=== PATIENT | male | born 1960 | race Caucasian/White ===

== ENCOUNTER 2019-07-23 11:11 | Inpatient (IN) | payer OTHER ==
[~2019-07-23] VITALS: Ht 182.9 cm; Wt 88.6 kg
[2019-07-23 11:53] LABS: ALANINE AMINOTRANSFERASE 206 U/L (12-78); ALBUMIN 3.4 g/dL (3.4-5.0); ANION GAP 10 mmol/L (5-15); CHLORIDE 96 mmol/L (98-107); CREATININE 0.93 mg/dL (0.7-1.3)
[2019-07-23 12:07] LABS: ALKALINE PHOSPHATASE 988 U/L (45-117); BILIRUBIN,TOTAL 8.7 mg/dL (0.2-1.0); TOTAL PROTEIN 7.5 g/dL (6.4-8.2)
[2019-07-23 12:11] LABS: MEAN CORPUSCULAR HEMOGLOBIN 30.9 pg (27.5-34.5); MEAN CORPUSCULAR HGB CONC 34.1 g/dL (33.2-36.2); MEAN CORPUSCULAR VOLUME 90.6 fL (81-97); MEAN PLATELET VOLUME 7.7 fL (7.4-10.4); PLATELET COUNT 225 x10^3/uL (130-400); RED BLOOD COUNT 5.26 x10^6/uL (4.38-5.82); RED CELL DISTRIBUTION WIDTH 15.7 % (9.4-14.8)
[2019-07-23 12:30] LABS: BASOPHILS # (AUTO) 0.02 x10^3/uL (0-0.1); BASOPHILS % (AUTO) 0 % (0-1); EOSINOPHILS # (AUTO) 0.27 x10^3/uL (0-0.4); EOSINOPHILS % (AUTO) 3 % (1-7); LYMPHOCYTES # (AUTO) 1.55 x10^3/uL (1-3.4); LYMPHOCYTES % (AUTO) 15 % (22-44); MD SCAN; MONOCYTES # (AUTO) 0.96 x10^3/uL (0.2-0.8); MONOCYTES % (AUTO) 9 % (2-9); NEUTROPHILS # (AUTO) 7.49 x10^3/uL (1.8-6.8); NEUTROPHILS % (AUTO) 73 % (42-75)
--- NOTE | 2019-07-23 14:28 | NUR ---
TO ROOM FROM LOBBY AT THIS TIME
[2019-07-23 14:58] LABS: MICROSCOPIC NOT IND
[2019-07-23 15:01] LABS: CULTURE INDICATED? NO
--- NOTE | 2019-07-23 15:31 | NUR ---
PT PRESENTS TO ED WITH C/O LEFT UPPER ABD PAIN AND DIZZINESS X 1.5 MONTHS. PT DENIES PAIN AT THIS TIME. NEURO INTACT, PT A&OX4, RESPS EVEN AND UNLABORED. EKG COMPLETED IN TRIAGE. ALL MONITORS IN PLACE. CALL LIGHT IN REACH, AWAITING CT SCAN. REPORT GIVEN TO RADHA MIKE.
--- NOTE | 2019-07-23 15:45 | NUR ---
RECEIVED REPORT FROM RADHA HILARIO. PT RESTING ON GURNEY. SHANNANN. VSS. PIV INITIATED FOR CT. ORTHOSTATICS COMPLETED.
--- NOTE | 2019-07-23 15:47 | NUR ---
CT DOING CODE NEURO BEFORE THIS PATIENT
--- NOTE | 2019-07-23 16:25 | NUR ---
PT RESTING ON GURNEY. NADN. GONZÁLES.
[2019-07-23] MEDS ORDERED: OMNIPAQUE 350 MG/ML, 100ML BOTTLE ONE (16:47)
[2019-07-23] MEDS ORDERED: SODIUM CHLORIDE FLUSH 10ML SYR IVF PRN (17:30)
--- NOTE | 2019-07-23 17:50 | NUR ---
PT PROVIDED W/ DINNER TRAY. PT RESTING ON ALEXANDER.
--- NOTE | 2019-07-23 18:03 | NUR ---
PT RESTING ON GURNEY. NADN. GONZÁLES.
--- NOTE | 2019-07-23 18:25 | NUR ---
REPORT GIVEN TO VICKI WHITE RN. ALL QUESTIONS ANSWERED. AWAITING PT TRANSPORT.
[2019-07-23] MEDS ORDERED: BISACODYL 10 MG SUPP PR PRN (19:30)
[2019-07-23] MEDS ORDERED: ENALAPRILAT 1.25 MG/ML, 2ML IVPush PRN (19:30)
[2019-07-23] MEDS ORDERED: LORazepam 2 MG/ML, 1ML IVPush PRN (19:30)
[2019-07-23] MEDS ORDERED: LIDODERM 5% PATCH TD PRN (19:30)
[2019-07-23] MEDS ORDERED: ENOXAPARIN 80 MG/0.8 ML SQ SCH (19:30)
[2019-07-23] MEDS ORDERED: HYDROmorphone 1 MG/ML, 1ML INJ ONE (19:53)
[2019-07-23] MEDS: HYDROmorphone 2 MG/ML, 1ML IVPush PRN (19:56)
[2019-07-23 20:02] VITALS: BP 128/78
[2019-07-24] MEDS ORDERED: HYDROmorphone 1 MG/ML, 1ML INJ ONE ×2 (00:06→06:11)
[2019-07-24] MEDS: SODIUM CHLORIDE 0.9% 1,000 ML IV SCH ×3 (00:10→15:26)
[2019-07-24] MEDS: HYDROmorphone 2 MG/ML, 1ML IVPush PRN ×5 (00:11→18:34)
[2019-07-24] MEDS: NICOTINE 21 MG/24 HR PATCH.TD24 TD SCH ×2 (00:11→21:42)
[2019-07-24] MEDS ORDERED: HEPARIN 5,000 UNITS/ML, 1ML IV ONE (01:00)
[2019-07-24 01:36] VITALS: BP 92/57
[2019-07-24 01:49] LABS: MEAN CORPUSCULAR HEMOGLOBIN 30.6 pg (27.5-34.5); MEAN CORPUSCULAR HGB CONC 34.1 g/dL (33.2-36.2); MEAN CORPUSCULAR VOLUME 89.8 fL (81-97); MEAN PLATELET VOLUME 8.1 fL (7.4-10.4); PLATELET COUNT 202 x10^3/uL (130-400); RED BLOOD COUNT 4.85 x10^6/uL (4.38-5.82); RED CELL DISTRIBUTION WIDTH 15.5 % (9.4-14.8)
[2019-07-24 02:05] LABS: MD YES
[2019-07-24 02:09] LABS: BANDS%(MANUAL) 2 % (0-7); BASOS% (MANUAL) 1 % (0-1); EOS% (MANUAL) 2 % (1-7); LYMPH#(MANUAL) 1.67 x10^3/uL (1-3.4); LYMPHS% (MANUAL) 17 % (22-44); MONOS#(MANUAL) 1.08 x10^3/uL (0.3-2.7); MONOS% (MANUAL) 11 % (2-9); SEG#(MANUAL) 6.57 x10^3/uL (1.8-6.8); SEGS% (MANUAL) 67 % (42-75)
[2019-07-24 02:10] LABS: <PLATELET ESTIMATE> ADEQUATE; <PLT MORPHOLOGY> NORMAL PLT MORPH; ANISOCYTOSIS 1+
[2019-07-24] MEDS: HEPARIN 25,000 UNITS/250ML PMX 250 ML IV PRN (02:15)
[2019-07-24 02:29] LABS: ALANINE AMINOTRANSFERASE 175 U/L (12-78); ALBUMIN 2.9 g/dL (3.4-5.0); ANION GAP 8 mmol/L (5-15); CALCIUM 9.5 mg/dL (8.5-10.1); CHLORIDE 101 mmol/L (98-107); CREATININE 1.06 mg/dL (0.7-1.3)
[2019-07-24 02:31] LABS: ALKALINE PHOSPHATASE 866 U/L (45-117); BILIRUBIN,TOTAL 7.8 mg/dL (0.2-1.0); TOTAL PROTEIN 6.6 g/dL (6.4-8.2)
[2019-07-24] MEDS: ONDANSETRON 2MG/ML, 2ML IVPush PRN ×2 (04:56→12:28)
[2019-07-24 07:43] VITALS: BP 99/62
[2019-07-24 07:43] LABS: INTERNATIONAL NORMALIZED RATIO 0.97 (0.93-1.1); PROTHROMBIN TIME 10.3 Seconds (9.6-11.5)
[2019-07-24] MEDS ORDERED: FLUMAZENIL 0.1 MG/1 ML, 5ML ONE (10:19)
[2019-07-24] MEDS ORDERED: MIDAZOLAM 1 MG/ML, 5ML ONE (10:19)
[2019-07-24] MEDS ORDERED: FENTANYL PF 100 MCG/2ML ONE (10:19)
[2019-07-24] MEDS ORDERED: NALOXONE 1 MG/ML, 2ML ONE (10:20)
[2019-07-24 11:03] VITALS: BP 107/72
[2019-07-24] MEDS ORDERED: PROMETHAZINE 25 MG/ML, 1ML IM PRN (12:30)
[2019-07-24 12:36] VITALS: BP 112/75
[2019-07-24 18:18] VITALS: BP 133/79
[2019-07-24] MEDS: HEPARIN 5,000 UNITS/ML, 1ML IV PRN (19:41)
[2019-07-25] MEDS: HYDROmorphone 2 MG/ML, 1ML IVPush PRN ×7 (00:25→21:54)
[2019-07-25 00:35] VITALS: BP 113/69
[2019-07-25 01:55] LABS: ALANINE AMINOTRANSFERASE 158 U/L (12-78); ALBUMIN 2.6 g/dL (3.4-5.0); ANION GAP 8 mmol/L (5-15); CHLORIDE 106 mmol/L (98-107); CREATININE 0.63 mg/dL (0.7-1.3)
[2019-07-25 01:57] LABS: ALKALINE PHOSPHATASE 810 U/L (45-117); BILIRUBIN,TOTAL 7.4 mg/dL (0.2-1.0); TOTAL PROTEIN 5.9 g/dL (6.4-8.2)
[2019-07-25 02:11] LABS: MD YES; MEAN CORPUSCULAR HEMOGLOBIN 30.7 pg (27.5-34.5); MEAN CORPUSCULAR HGB CONC 33.7 g/dL (33.2-36.2); MEAN CORPUSCULAR VOLUME 91.1 fL (81-97); MEAN PLATELET VOLUME 7.9 fL (7.4-10.4); PLATELET COUNT 190 x10^3/uL (130-400); RED BLOOD COUNT 4.52 x10^6/uL (4.38-5.82); RED CELL DISTRIBUTION WIDTH 15.8 % (9.4-14.8)
[2019-07-25 02:12] LABS: BASOS#(MANUAL) 0.09 x10^3/uL (0-0.1); BASOS% (MANUAL) 1 % (0-1); EOS#(MANUAL) 0.34 x10^3/uL (0.0-0.4); EOS% (MANUAL) 4 % (1-7); LYMPH#(MANUAL) 1.28 x10^3/uL (1-3.4); LYMPHS% (MANUAL) 15 % (22-44); MONOS#(MANUAL) 0.77 x10^3/uL (0.3-2.7); MONOS% (MANUAL) 9 % (2-9); REACTIVE LYMPHS # (MANUAL) 0.17 x10^3/uL (0-0); REACTIVE LYMPHS % (MANUAL) 2 % (0-0); SEG#(MANUAL) 5.87 x10^3/uL (1.8-6.8); SEGS% (MANUAL) 69 % (42-75)
[2019-07-25 02:13] LABS: ANISOCYTOSIS 1+; TARGET CELLS 1+
[2019-07-25 02:14] LABS: <PLATELET ESTIMATE> ADEQUATE
[2019-07-25] MEDS: HEPARIN 5,000 UNITS/ML, 1ML IV PRN ×3 (02:29→23:06)
[2019-07-25] MEDS: HEPARIN 25,000 UNITS/250ML PMX 250 ML IV PRN ×2 (04:06→23:06)
[2019-07-25 07:22] VITALS: BP 121/76
[2019-07-25] MEDS: SODIUM CHLORIDE 0.9% 1,000 ML IV SCH ×4 (07:51→23:10)
[2019-07-25 13:22] VITALS: BP 131/79
[2019-07-25 19:28] VITALS: BP 148/79
[2019-07-25] MEDS: NICOTINE 21 MG/24 HR PATCH.TD24 TD SCH (20:02)
[2019-07-25] MEDS: ONDANSETRON 2MG/ML, 2ML IVPush PRN (21:58)
[2019-07-26 00:47] VITALS: BP 131/73
[2019-07-26] MEDS: HYDROmorphone 2 MG/ML, 1ML IVPush PRN ×6 (00:59→21:07)
[2019-07-26 07:08] VITALS: BP 119/66
[2019-07-26] MEDS: NICOTINE 21 MG/24 HR PATCH.TD24 TD SCH (09:27)
[2019-07-26] MEDS: SODIUM CHLORIDE 0.9% 1,000 ML IV SCH (09:28)
[2019-07-26] MEDS ORDERED: SENNOSIDES 8.8 MG/5 ML ORAL SOL PO SCH (12:00)
[2019-07-26] MEDS: SENNA/DOCUSATE TABLET PO SCH (12:57)
[2019-07-26 13:25] VITALS: BP 95/57
[2019-07-26 19:05] VITALS: BP 143/77
[2019-07-26] MEDS ORDERED: HYDROmorphone 1 MG/ML, 1ML INJ ONE (21:02)
[2019-07-27 00:10] VITALS: BP 139/87
[2019-07-27] MEDS ORDERED: HYDROmorphone 1 MG/ML, 1ML INJ ONE (00:12)
[2019-07-27] MEDS: HYDROmorphone 2 MG/ML, 1ML IVPush PRN ×6 (00:18→20:10)
[2019-07-27] MEDS: OXYcodone IR 5MG TABLET PO PRN ×2 (02:06→17:20)
[2019-07-27] MEDS: HEPARIN 25,000 UNITS/250ML PMX 250 ML IV PRN ×2 (06:30→21:34)
[2019-07-27] MEDS: NICOTINE 21 MG/24 HR PATCH.TD24 TD SCH (07:39)
[2019-07-27 07:40] VITALS: BP 120/76
[2019-07-27] MEDS: SENNA/DOCUSATE TABLET PO SCH (07:40)
[2019-07-27] MEDS: POLYETHYLENE GLYCOL 17 GM PACKET NG PRN (10:36)
[2019-07-27 12:42] VITALS: BP 127/78
[2019-07-27] MEDS ORDERED: MAGNESIUM CITRATE 300ML ORAL SOL PO ONE (15:00)
[2019-07-27] MEDS: ONDANSETRON 2MG/ML, 2ML IVPush PRN (16:44)
[2019-07-27 19:29] VITALS: BP 109/76
[2019-07-28 00:25] VITALS: BP 112/72
[2019-07-28] MEDS: HYDROmorphone 2 MG/ML, 1ML IVPush PRN ×5 (02:41→20:01)
[2019-07-28 04:53] LABS: ALANINE AMINOTRANSFERASE 110 U/L (12-78); ALBUMIN 2.2 g/dL (3.4-5.0); ANION GAP 8 mmol/L (5-15); CALCIUM 8.7 mg/dL (8.5-10.1); CHLORIDE 99 mmol/L (98-107)
[2019-07-28 04:55] LABS: ALKALINE PHOSPHATASE 678 U/L (45-117); BILIRUBIN,TOTAL 8.4 mg/dL (0.2-1.0); TOTAL PROTEIN 5.4 g/dL (6.4-8.2)
[2019-07-28] MEDS: HEPARIN 5,000 UNITS/ML, 1ML IV PRN ×2 (05:13→18:55)
[2019-07-28 07:07] VITALS: BP 107/60
[2019-07-28] MEDS: OXYcodone IR 5MG TABLET PO PRN ×3 (09:31→22:35)
[2019-07-28] MEDS: POLYETHYLENE GLYCOL 17 GM PACKET NG PRN (09:31)
[2019-07-28] MEDS: NICOTINE 21 MG/24 HR PATCH.TD24 TD SCH (09:32)
[2019-07-28] MEDS: SENNA/DOCUSATE TABLET PO SCH (09:33)
[2019-07-28] MEDS: HEPARIN 25,000 UNITS/250ML PMX 250 ML IV PRN (12:44)
[2019-07-28 14:33] VITALS: BP 108/72
[2019-07-28 19:43] VITALS: BP 125/81
[2019-07-29 01:28] VITALS: BP 114/71
[2019-07-29] MEDS: HEPARIN 25,000 UNITS/250ML PMX 250 ML IV PRN ×2 (03:36→16:09)
[2019-07-29] MEDS: HYDROmorphone 2 MG/ML, 1ML IVPush PRN ×2 (05:13→09:24)
[2019-07-29 07:20] VITALS: BP 102/55
[2019-07-29] MEDS: SENNA/DOCUSATE TABLET PO SCH (10:19)
[2019-07-29] MEDS: POLYETHYLENE GLYCOL 17 GM PACKET NG PRN (10:19)
[2019-07-29] MEDS: NICOTINE 21 MG/24 HR PATCH.TD24 TD SCH (10:24)
[2019-07-29] MEDS: LACTULOSE 10 GM/15 ML UDC PO PRN ×3 (12:11→17:28)
[2019-07-29] MEDS: OXYcodone IR 5MG TABLET PO PRN ×2 (12:16→19:25)
[2019-07-29 12:44] VITALS: BP 121/76
[2019-07-29] MEDS: OxyconTIN ER 15 MG TAB.ER PO SCH (14:24)
[2019-07-29 19:21] VITALS: BP 131/87
[2019-07-30] MEDS: OxyconTIN ER 15 MG TAB.ER PO SCH (01:37)
[2019-07-30 02:19] VITALS: BP 137/76
[2019-07-30] MEDS: HEPARIN 25,000 UNITS/250ML PMX 250 ML IV PRN (04:45)
[2019-07-30] MEDS: OXYcodone IR 5MG TABLET PO PRN ×3 (04:53→14:07)
[2019-07-30 07:02] VITALS: BP 122/65
[2019-07-30] MEDS: NICOTINE 21 MG/24 HR PATCH.TD24 TD SCH (09:00)
[2019-07-30] MEDS: ONDANSETRON 2MG/ML, 2ML IVPush PRN (09:01)
[2019-07-30] MEDS: SENNA/DOCUSATE TABLET PO SCH (09:59)
[2019-07-30] MEDS ORDERED: OxyconTIN ER 15 MG TAB.ER PO SCH (12:00)
[2019-07-30 13:54] VITALS: BP 138/72
== END 2019-07-30 14:40 | disposition hospice, home (50) | DRG 435 ==
LOC: ED 14:46 → EDIP 17:24 → 4NW 19:25
PROVIDERS: ADMIT Internal Medicine; ATTEND Internal Medicine
PROC: 0FB03ZX Excision of Liver, Percutaneous Approach, Diagnostic (ICD-10-PCS; principal; 2019-07-24)
DX: C25.9 Malignant neoplasm of pancreas, unspecified (principal); I26.99 Other pulmonary embolism without acute cor pulmonale; C78.7 Secondary malignant neoplasm of liver and intrahepatic bile duct; C79.89 Secondary malignant neoplasm of other specified sites; E87.1 Hypo-osmolality and hyponatremia; F10.10 Alcohol abuse, uncomplicated; F17.200 Nicotine dependence, unspecified, uncomplicated; K59.00 Constipation, unspecified; N28.1 Cyst of kidney, acquired; Z51.5 Encounter for palliative care; Y90.9 Presence of alcohol in blood, level not specified
CPT/HCPCS: 36415; 47000; 74177; 74181; 76700; 76942; 80053; 80074; 81003; 82378; 83690; 85025; 85520; 85610; 86301; 88307; 88341; 88342; 93005; 93306; 93356; 93970; 99156; 99157; 99285; G0378; J1170; J1644; J2250; J2405; J3010; Q9967; J2310; J7030

== ENCOUNTER 2019-07-30 22:02 | Emergency (ER) | payer SELFPAY ==
[~2019-07-30] VITALS: Ht 182.9 cm; Wt 90.1 kg
[2019-07-30] MEDS ORDERED: SODIUM CHLORIDE FLUSH 10ML SYR IVF ONE (23:00)
[2019-07-30] MEDS ORDERED: ONDANSETRON 2MG/ML, 2ML IVPush ONE (23:00)
[2019-07-30] MEDS ORDERED: HYDROmorphone 1 MG/ML, 1ML INJ ONE ×2 (23:11→23:36)
[2019-07-30] MEDS ORDERED: ONDANSETRON 2MG/ML, 2ML ONE (23:11)
[2019-07-30] MEDS: HYDROmorphone 1 MG/ML, 1ML INJ IVPush PRN ×2 (23:19→23:39)
--- NOTE | 2019-07-30 23:30 | NUR ---
Pt medicated per MAR, spouse at bedside, side rails locked and call light within reach.
--- NOTE | 2019-07-31 00:35 | NUR ---
Pt laying down on gurney, states pain has subsided 4/10 on pain scale. Spouse at bedside.
[2019-07-31] MEDS ORDERED: OXYcodone/APAP 10/325MG TABLET ONE (00:50)
[2019-07-31] MEDS ORDERED: OXYcodone/APAP 10/325MG TABLET PO ONE (01:00)
[2019-07-31 01:10] VITALS: BP 163/94
--- NOTE | 2019-07-31 01:17 | NUR ---
IV removed, dc education given to patient and spouse, all questions addressed. Pt on wheelchair to dc desk.
== END 2019-07-31 01:22 | disposition home or self-care (01) ==
LOC: ED 07-31 00:31
DX: R10.84 Generalized abdominal pain (principal)
CPT/HCPCS: 93005; 96374; 96375; 96376; 99283; J1170; J2405